=== PATIENT | male | born 1960 | race Caucasian/White ===

== ENCOUNTER 2020-05-03 05:47 | Inpatient (IN) | payer OTHER ==
[~2020-05-03] VITALS: Ht 175.3 cm; Wt 92.0 kg
[2020-05-03] MEDS ORDERED: ONDANSETRON PF 4 MG/2 ML VIAL. ONE (06:06)
[2020-05-03] MEDS ORDERED: ONDANSETRON PF 4 MG/2 ML VIAL. IVP ONE (06:15)
[2020-05-03] MEDS ORDERED: IV NORMAL SALINE 1,000ML 1,000 ML IV ONE ×3 (06:15→08:00)
[2020-05-03 06:20] LABS: BASO % 0 % (0-3); EOS % 0 % (0-3); HEMATOCRIT 51.2 % (39.0-53.0); HEMOGLOBIN 17.4 g/dL (13.0-17.5); LYMPH # 0.7 x10^3/uL (1.0-4.8); LYMPH % 5 % (24-48); MEAN CORPUSCULAR HEMOGLOBIN 33 pg (25-35); MEAN CORPUSCULAR HGB CONC 34 g/dL (31-37); MEAN CORPUSCULAR VOLUME 97 fL (79-100); MONO # 0.7 x10^3/uL (0.0-1.1); MONO % 4 % (0-9); NEUT # 14.5 x10^3uL (1.8-7.7); NEUT % 91 % (31-73); PLATELET COUNT 293 x10^3/uL (140-400); RED BLOOD COUNT 5.28 x10^6/uL (4.30-5.70); RED CELL DISTRIBUTION WIDTH 12.3 % (11.5-14.5)
[2020-05-03 06:26] LABS: CALCIUM 9.3 mg/dL (8.5-10.1); CREATININE 3.1 mg/dL (0.7-1.3); GFR 20.7; POTASSIUM 4.3 mmol/L (3.5-5.1)
[2020-05-03] MEDS ORDERED: MORPHINE SULFATE 4 MG/ML DISP.SYRIN. IV ONE ×2 (06:30→07:30)
--- NOTE | 2020-05-03 06:32 | PHYS DOC ---
Past History Past Medical History: Hypertension Past Surgical History: Appendectomy, Other Additional Past Surgical Histo: hernia repair, cyst from face removed, Basal cell carcinoma removed back Alcohol Use: None General Adult EDM: Chief Complaint: NAUSEA/VOMITING/DIARRHEA HPI: HPI: 59-year-old male presents with epigastric abdominal pain and vomiting. Patient started with volume to p.o. last night. He has had multiple episodes overnight. He has also developed sharp epigastric pain. His generalized abdomen is sore from the vomiting, but he also feels like there is a focal area of sharp pain in the epigastric area. It is moderate to severe in intensity. Patient has had a hernia repair in the past in this general area. He still has his gallbladder. No history of pancreatitis. He does not drink alcohol daily. He denies diarrh ea. He denies fever or chills. He is on clindamycin currently for a dental infection. Review of Systems: Review of Systems: Constitutional: Denies fever or chills Eyes: Denies change in visual acuity HENT: Denies nasal congestion or sore throat Respiratory: Denies cough or shortness of breath Cardiovascular: Denies chest pain or edema GI: Epigastric abdominal pain, nausea, vomiting. denies bloody stools or diarrhea : Denies dysuria Musculoskeletal: Denies back pain or joint pain Integument: Denies rash Neurologic: Denies headache, focal weakness or sensory changes Endocrine: Denies polyuria or polydipsia Lymphatic: Denies swollen glands Psychiatric: Denies depression or anxiety Current Medications: Current Meds: Current Medications Medications (Trade) Dose Ordered Sig/Manisha Start Time Stop Time Status Last Admin Dose Admin Ondansetron HCl (Zofran) 4 mg 1X ONCE 05/03/20 06:15 05/03/20 06:17 DC 05/03/20 06:10 4 MG Sodium Chloride 1,000 ml @ 1,000 mls/hr 1X ONCE 05/03/20 06:15 05/03/20 07:14 05/03/20 06:10 1,000 MLS/HR Allergies: Allergies: Allergies Coded Allergies Type Severity Reaction Last Updated Verified Sulfa (Sulfonamide Antibiotics) Allergy Unknown 05/03/20 Yes Physical Exam: PE: Constitutional: Well developed, well nourished, no acute distress, non-toxic appearance. [] HENT: Normocephalic, atraumatic, bilateral external ears normal, oropharynx moist, no oral exudates, nose normal. [] Eyes: PERRLA, EOMI, conjunctiva normal, no discharge. [] Neck: Normal range of motion, no tenderness, supple, no stridor. [] Cardiovascular:Heart rate regular rhythm, no murmur [] Lungs & Thorax: Bilateral breath sounds clear to auscultation [] Abdomen: Bowel sounds normal, soft, epigastric tenderness with involuntary guarding, no masses, no pulsatile masses. [] Skin: Warm, dry, no erythema, no rash. [] Back: No tenderness, no CVA tenderness. [] Extremities: No tenderness, no cyanosis, no clubbing, ROM intact, no edema. [] Neurologic: Alert and oriented X 3, normal motor function, normal sensory function, no focal deficits noted. [] Psychologic: Affect normal, judgement normal, mood normal. [] Current Patient Data: Labs: Laboratory Tests Test 05/03/20 05:55 White Blood Count 16.0 x10^3/uL (4.0-11.0) H Red Blood Count 5.28 x10^6/uL (4.30-5.70) Hemoglobin 17.4 g/dL (13.0-17.5) Hematocrit 51.2 % (39.0-53.0) Mean Corpuscular Volume 97 fL (79-100) Mean Corpuscular Hemoglobin 33 pg (25-35) Mean Corpuscular Hemoglobin Concent 34 g/dL (31-37) Red Cell Distribution Width 12.3 % (11.5-14.5) Platelet Count 293 x10^3/uL (140-400) Neutrophils (%) (Auto) 91 % (31-73) H Lymphocytes (%) (Auto) 5 % (24-48) L Monocytes (%) (Auto) 4 % (0-9) Eosinophils (%) (Auto) 0 % (0-3) Basophils (%) (Auto) 0 % (0-3) Neutrophils # (Auto) 14.5 x10^3uL (1.8-7.7) H Lymphocytes # (Auto) 0.7 x10^3/uL (1.0-4.8) L Monocytes # (Auto) 0.7 x10^3/uL (0.0-1.1) Eosinophils # (Auto) 0.0 x10^3/uL (0.0-0.7) Basophils # (Auto) 0.0 x10^3/uL (0.0-0.2) Platelet Estimate Pending Sodium Level 136 mmol/L (136-145) Potassium Level 4.3 mmol/L (3.5-5.1) Chloride Level 95 mmol/L (98-107) L Carbon Dioxide Level 21 mmol/L (21-32) Anion Gap 20 (6-14) H Blood Urea Nitrogen 46 mg/dL (8-26) H Creatinine 3.1 mg/dL (0.7-1.3) H Estimated GFR (Cockcroft-Gault) 20.7 BUN/Creatinine Ratio 15 (6-20) Glucose Level 171 mg/dL (70-99) H Calcium Level 9.3 mg/dL (8.5-10.1) Total Bilirubin Pending Aspartate Amino Transferase (AST) Pending Alanine Aminotransferase (ALT) Pending Alkaline Phosphatase Pending Total Protein Pending Albumin Pending Albumin/Globulin Ratio Pending Lipase Pending Vital Signs: Vital Signs Date Time Temp Pulse Resp B/P (MAP) Pulse Ox O2 Delivery O2 Flow Rate FiO2 05/03/20 05:50 97.5 78 18 191/105 (133) 97 Room Air EKG: EKG: [] Radiology/Procedures: Radiology/Procedures: [] Impressions: CT ABDOMEN PELVIS WO CONTRAST History: epigastric pain Comparison: None. Technique: After administration of intravenous contrast, helical CT of the abdomen and pelvis was performed from the lung bases through the ischial tuberosities. Coronal and sagittal reconstructions were obtained. 75 mL of Omnipaque 350 were used. One or more of the following dose reduction techniques were utilized: Automated exposure control (AEC), Adjustment of mA and/or kV according to patient size, Use of iterative reconstruction technique such as ASiR, CT scan done according to ALARA and image gently/image wisely Abdomen Findings: The visualized lung bases are clear. Coronary artery atherosclerotic disease. Extensive peripancreatic haziness and scattered free fluid Cholelithiasis. The liver, spleen, and bilateral adrenal glands are normal. Symmetric renal enhancement. There is no focal renal mass. There is no hydronephrosis. Wall thickening of the third portion of duodenum. Colonic diverticulosis. There is no evidence of bowel obstruction. Appendectomy. There is no mesenteric or retroperitoneal adenopathy. The abdominal aorta is normal in caliber. Mild aortoiliac atherosclerotic disease. Pelvis Findings: Urinary bladder is normal. Mild pelvic free fluid. There is no pelvic or inguinal adenopathy. Iterative changes of the spine. IMPRESSION: 1. Extensive peripancreatic haziness and scattered free fluid consistent with acute. Pancreatitis. No large organized fluid collection. 2. Adjacent duodenal wall thickening, likely reactive. 3. Cholelithiasis. 4. Colonic diverticulosis. Electronically signed by: Evon Tristan MD (05/03/2020 7:24 AM) [id number] DICTATED AND SIGNED BY: EVON TRISTAN MD DATE: 05/03/20723 CC: JACOBO BAIG DO; PCP,UNKNOWN ~ Heart Score: Risk Factors: Risk Factors: DM, Current or recent (<one month) smoker, HTN, HLP, family history of CAD, obesity. Risk Scores: Score 0 - 3: 2.5% MACE over next 6 weeks - Discharge Home Score 4 - 6: 20.3% MACE over next 6 weeks - Admit for Clinical Observation Score 7 - 10: 72.7% MACE over next 6 weeks - Early Invasive Strategies Course & Med Decision Making: Course & Med Decision Making Pertinent Labs and Imaging studies reviewed. (See chart for details) The patient is having quite a bit of discomfort. I have given him 4 mg of morphine twice so far to help get a hold of his pain. His labs are significant for a lipase of 3178. His creatinine is elevated 3.1. Have ordered a second liter fluid. His CT scan is also consistent with acute pancreatitis. He has gallstones, but his bilirubin is normal. Does not appear to be obstructed at this time. I spoke with the patient about admission and he understands and is in agreement with admission. He is n.p.o. and I will place him on NS maintenance fluid for now. I spoke with Dr. Brody and he has accepted the patient for admission. [] Cailin Disclaimer: Cailin Disclaimer: This electronic medical record was generated, in whole or in part, using a voice recognition dictation system. Departure Departure: Impression: Primary Impression: Acute pancreatitis Qualified Codes: K85.90 - Acute pancreatitis without necrosis or infection, unspecified Disposition: ADMITTED INPT THIS HOSP Admitting Physician: Ho, Donnie Condition: STABLE Referrals: PCP,UNKNOWN (PCP) JACOBO BAIG DO May 03, 2020 06:32
[2020-05-03 06:33] LABS: ALBUMIN 4.3 g/dL (3.4-5.0); ALBUMIN/GLOBULIN RATIO 1.1 (1.0-1.7); TOTAL BILIRUBIN 0.5 mg/dL (0.2-1.0); TOTAL PROTEIN 8.2 g/dL (6.4-8.2)
[2020-05-03 07:24] LABS: % LYMPHS 7 % (24-48); % MONOS 5 % (0-10); % SEGS 88 % (35-66); PLT ESTIMATE ADEQUATE (ADEQUATE)
--- NOTE | 2020-05-03 07:27 | RAD ---
CT ABDOMEN PELVIS WO CONTRAST History: epigastric pain Comparison: None. Technique: After administration of intravenous contrast, helical CT of the abdomen and pelvis was performed from the lung bases through the ischial tuberosities. Coronal and sagittal reconstructions were obtained. 75 mL of Omnipaque 350 were used. One or more of the following dose reduction techniques were utilized: Automated exposure control (AEC), Adjustment of mA and/or kV according to patient size, Use of iterative reconstruction technique such as ASiR, CT scan done according to ALARA and image gently/image wisely Abdomen Findings: The visualized lung bases are clear. Coronary artery atherosclerotic disease. Extensive peripancreatic haziness and scattered free fluid Cholelithiasis. The liver, spleen, and bilateral adrenal glands are normal. Symmetric renal enhancement. There is no focal renal mass. There is no hydronephrosis. Wall thickening of the third portion of duodenum. Colonic diverticulosis. There is no evidence of bowel obstruction. Appendectomy. There is no mesenteric or retroperitoneal adenopathy. The abdominal aorta is normal in caliber. Mild aortoiliac atherosclerotic disease. Pelvis Findings: Urinary bladder is normal. Mild pelvic free fluid. There is no pelvic or inguinal adenopathy. Iterative changes of the spine. IMPRESSION: 1. Extensive peripancreatic haziness and scattered free fluid consistent with acute. Pancreatitis. No large organized fluid collection. 2. Adjacent duodenal wall thickening, likely reactive. 3. Cholelithiasis. 4. Colonic diverticulosis. Electronically signed by: Charlie Joseph MD (05/03/2020 7:24 AM) [id number]
[2020-05-03] MEDS ORDERED: LISI1TAB20 PO (07:55)
[2020-05-03] MEDS ORDERED: MORPHINE SULFATE 4 MG/ML DISP.SYRIN. IVP PRN (08:00)
[2020-05-03] MEDS ORDERED: ONDANSETRON PF 4 MG/2 ML VIAL. IVP PRN (08:00)
[2020-05-03 08:28] VITALS: BP 198/99
[2020-05-03] MEDS: IV NORMAL SALINE 1,000ML 1,000 ML IV SCH ×2 (09:15→17:07)
[2020-05-03] MEDS: HYDROmorphone PF 1 MG/ML DISP.SYRIN IVP PRN ×5 (09:27→22:58)
[2020-05-03 10:02] VITALS: BP 179/110
--- NOTE | 2020-05-03 10:08 | HP ---
ADMIT DATE: 05/03/2020 ATTENDING PHYSICIAN: Dr. Govea. CHIEF COMPLAINT: Nausea, vomiting, abdominal pain. 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 He had a 1-day history of epigastric abdominal pain with significant vomiting and nausea, multiple episodes with epigastric pain. In the ED, he was found to have acute pancreatitis. The CT showed significant peripancreatic inflammation. He has some gallstones in the gallbladder, but no bile duct obstruction. He drinks alcohol occasionally, not to excess. He is on clindamycin currently for dental infection. PAST MEDICAL HISTORY: Significant for essential hypertension. He has had a previous appendectomy, hernia repair, basal cell carcinoma removed from the back. ALLERGIES: HE HAS ALLERGIES TO SULFA DRUGS. CURRENT MEDICATIONS: Clindamycin orally and lisinopril/hydrochlorothiazide for hypertension. SOCIAL HISTORY: He is a nonsmoker. He drinks socially, not to excess. FAMILY HISTORY: Mom at age 78 of complications of COPD. Father at age of complication of colon cancer. He states that he has had a colonoscopy 10 years ago that was ___. 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 His children are grown. REVIEW OF SYSTEMS: Significant for the localized abdominal pain, some nausea, vomiting, 1 episode of diarrhea. No COVID exposure. No fevers, chills, or hematemesis. All other systems reviewed and determined to be negative. PHYSICAL EXAMINATION: GENERAL: When I saw him, this is a pleasant, middle-aged gentleman. INITIAL VITAL SIGNS: Showed blood pressure 198/99, pulse 85 and regular, temperature 98.1 degrees Fahrenheit. HEENT: Head is without trauma. Pupils are reactive. Sclerae nonicteric. Oropharynx clear. NECK: Supple, no bruits. LUNGS: Otherwise clear. CARDIOVASCULAR: Shows hyperdynamic precordium. No gallops. Peripheral pulses are palpable and strong. ABDOMEN: Obese, minimal guarding. There was some tympany with increased gas. There is no guarding or rebound tenderness. No masses palpated. EXTREMITIES: Showed no cyanosis or edema. NEUROLOGIC: Focally intact. Speech is fluent. SKIN: Warm and dry. PERTINENT LABORATORY STUDIES: Hemoglobin is 17.4 g/dL, white count 16,000. Electrolytes are within normal range. Lipase was 3178. Nonfasting blood sugar 170. ASSESSMENT: 1. A 59-year-old gentleman with acute pancreatitis, etiology either retained stone that has passed or alcohol related. 2. Essential hypertension, labile. 3. Associated nausea and vomiting. PLAN: 1. Admit to the inpatient unit. 2. N.p.o. except for ice chips. 3. Pain and nausea control. 4. We will monitor his blood pressure. If it comes down, we will hold off treating. If it is still high, I would recommend transdermal clonidine for now. PALOMA GOVEA MD DR: AVERY/alina JOB#: [id number] / [id number]
[2020-05-03] MEDS ORDERED: cloNIDine TTS-3 1 PATCH PATCH TD SCH (10:15)
[2020-05-03] MEDS ORDERED: TRAM50TA PO (11:16)
[2020-05-03] MEDS ORDERED: CLIN150C14 PO (11:16)
[2020-05-03 15:06] VITALS: BP 186/99
[2020-05-03 19:00] VITALS: BP 178/104
[2020-05-03 22:51] VITALS: BP 163/99
[2020-05-04 02:33] LABS: BACTERIA,URINE 0 /HPF (0-FEW); BILIRUBIN,URINE NEG (NEG); CLARITY,URINE CLEAR; COLOR,URINE YELLOW; GLUCOSE,URINE NEG (NEG); NITRITE,URINE NEG (NEG); RBC,URINE 0 /HPF (0-2); SQUAMOUS EPITHELIAL CELL,UR OCC /LPF; UROBILINOGEN,URINE 0.2 mg/dL (0.2 mg/dL); WBC,URINE OCC /HPF (0-4)
[2020-05-04] MEDS: HYDROmorphone PF 1 MG/ML DISP.SYRIN IVP PRN ×5 (04:15→21:43)
[2020-05-04 05:38] VITALS: BP 169/91
[2020-05-04] MEDS ORDERED: FLU VACC QS 2020-21(6MOS+)/PF 0.5 ML SYRINGE. VAX IM ONE (09:00)
[2020-05-04] MEDS: LISINOPRIL 20 MG TABLET PO SCH (09:30)
--- NOTE | 2020-05-04 10:03 | PN ---
DATE: 05/04/2020 ATTENDING PHYSICIAN: Dr. Govea. SUBJECTIVE: Feeling better. Pain is better controlled, not nearly as nauseated. OBJECTIVE FINDINGS: VITAL SIGNS: Blood pressure today is 169/91, pulse 71 and regular. He is afebrile. Oxygen saturation 95% on room air. HEENT: Head is atraumatic. Pupils are reactive. No scleral icterus. NECK: Supple, no bruits. LUNGS: Otherwise clear. CARDIOVASCULAR: Showed regular heart tones. No gallops. ABDOMEN: Soft. Minimal guarding. Some tympany. There are no masses, no rebound tenderness. EXTREMITIES: Without edema. NEUROLOGIC FINDINGS: Focally intact. SKIN: Warm and dry. ASSESSMENT: 1. A 59-year-old gentleman with acute pancreatitis, most likely etiology is due to the hydrochlorothiazide component of his blood pressure meds. He does not have any bile duct issues nor does he drink enough to cause these symptoms. 2. Labile hypertension. 3. Associated nausea and vomiting, improved. PLAN: 1. Advance diet to clear liquids. He is hungry. 2. Pain and nausea control. 3. We should restart his blood pressure medication, but only the lisinopril portion, we will hold off the hydrochlorothiazide part. 4. If symptoms improve, he can be discharged as early as tomorrow. PALOMA GOVEA MD DR: AVERY/alina JOB#: [id number] / [id number]
[2020-05-04 10:30] VITALS: BP 152/83
[2020-05-04] MEDS: IV NORMAL SALINE 1,000ML 1,000 ML IV SCH (11:50)
[2020-05-04 14:29] VITALS: BP 143/85
[2020-05-04 19:23] VITALS: BP 119/78
[2020-05-04 23:27] VITALS: BP 130/83
[2020-05-05] MEDS: HYDROmorphone PF 1 MG/ML DISP.SYRIN IVP PRN ×5 (02:32→22:04)
[2020-05-05] MEDS: IV NORMAL SALINE 1,000ML 1,000 ML IV SCH (03:26)
[2020-05-05 05:43] VITALS: BP 117/85
[2020-05-05] MEDS: LISINOPRIL 20 MG TABLET PO SCH (08:58)
[2020-05-05 10:32] VITALS: BP 148/84
[2020-05-05 13:44] LABS: HEMATOCRIT 37.9 % (39.0-53.0); RED BLOOD COUNT 3.9 x10^6/uL (4.30-5.70); RED CELL DISTRIBUTION WIDTH 11.9 % (11.5-14.5); WHITE BLOOD COUNT 8.8 x10^3/uL (4.0-11.0)
[2020-05-05] MEDS ORDERED: oxyCODONE IR 5 MG TABLET PO PRN (13:45)
[2020-05-05 13:55] LABS: CALCIUM 8.5 mg/dL (8.5-10.1); GFR 76.2
[2020-05-05 14:01] LABS: ALBUMIN 2.9 g/dL (3.4-5.0); ALBUMIN/GLOBULIN RATIO 0.7 (1.0-1.7); TOTAL BILIRUBIN 0.7 mg/dL (0.2-1.0)
[2020-05-05] MEDS ORDERED: POTASSIUM CHLORIDE 20 MEQ TABLET.ER. PO ONE (14:15)
[2020-05-05] MEDS: POTASSIUM CL 40MEQ IN 0.9%NACL 1,000 ML IV SCH (14:45)
[2020-05-05 15:25] VITALS: BP 136/78
[2020-05-05 19:58] VITALS: BP 127/86
[2020-05-05 23:17] VITALS: BP 135/77
[2020-05-06] MEDS: POTASSIUM CL 40MEQ IN 0.9%NACL 1,000 ML IV SCH ×2 (01:45→08:23)
[2020-05-06] MEDS: HYDROmorphone PF 1 MG/ML DISP.SYRIN IVP PRN ×4 (01:45→11:39)
[2020-05-06 05:24] VITALS: BP 139/85
--- NOTE | 2020-05-06 06:41 | PN ---
DATE: 05/05/2020 SUBJECTIVE: The patient is resting, slightly propped up in bed, in no apparent distress. He continues to complain of abdominal pain, has no nausea, no vomiting. OBJECTIVE: GENERAL: When I examined him this afternoon, he looked well and was clearly in no apparent respiratory distress. No pallor, jaundice, cyanosis or thyromegaly. No jugular venous distention or limb edema. VITAL SIGNS: His heart rate was 65, blood pressure was 148/84, temperature was 98.7, respiratory rate was 18 and oxygen saturation was 97% on room air. HEAD, EYES, EARS, NOSE AND THROAT: Showed normocephalic, atraumatic. NECK: Supple. HEART: Showed normal first and second heart sounds. No gallop, rub or murmur. CHEST: Clear to auscultation. No crepitation or rhonchi. ABDOMEN: Distended, soft. Tenderness mostly in epigastric area. NEUROLOGIC: He was grossly intact. LABORATORY DATA: This afternoon showed a serum sodium 135, potassium 3, chloride 97, bicarbonate 31, anion gap of 7, BUN 18, creatinine 1, estimated GFR was 76 mL per minute. His glucose was 90, calcium was 8.5. Total bilirubin, AST, ALT, alkaline phosphatase were normal. Total protein 7, albumin was 2.9. His serum amylase is down to 514. His white cell count is down to 18,800, hemoglobin 13, hematocrit 38, MCV 97, and platelet count 241,000. His CT scan of the abdomen and pelvis showed that the patient has cholelithiasis. Unfortunately, there were no more details about his gallbladder. He has extensive peripancreatic haziness and scattered free fluid consistent with acute pancreatitis. No large organized fluid collection, adjacent duodenal wall thickening, likely reactive. He has cholelithiasis, colonic diverticulosis. PLAN: My plan is to correct his potassium. I will change his IV fluid to normal saline with 40 mEq of potassium chloride and was given 40 mEq of potassium p.o. I will keep him n.p.o. from midnight tonight and do abdominal ultrasound for acute cholecystitis or cholelithiasis and hopefully if his symptom improves, he can be discharged home. ALANA GUILLEN MD DR: MODE/alina JOB#: [id number] / [id number]
[2020-05-06 06:42] LABS: ALBUMIN 2.4 g/dL (3.4-5.0); ALBUMIN/GLOBULIN RATIO 0.6 (1.0-1.7); CALCIUM 7.9 mg/dL (8.5-10.1); CREATININE 0.8 mg/dL (0.7-1.3); GFR 98.6; POTASSIUM 3.8 mmol/L (3.5-5.1); TOTAL BILIRUBIN 0.6 mg/dL (0.2-1.0); TOTAL PROTEIN 6.2 g/dL (6.4-8.2)
[2020-05-06] MEDS: LISINOPRIL 20 MG TABLET PO SCH (08:23)
--- NOTE | 2020-05-06 08:33 | RAD ---
EXAM: Abdomen sonogram. HISTORY: Pain. TECHNIQUE: Sonographic imaging of the abdomen was performed. COMPARISON: CT dated 05/03/2020. FINDINGS: The liver is normal in size. No focal hepatic lesion is seen. The gallbladder wall is mildly thickened, measuring 4 mm. There is cholelithiasis. This includes a stone within the gallbladder neck measuring 1.0 cm. There is a negative sonographic Teague's sign. The common bile duct an pancreas are obscured. The right kidney and inferior vena cava are unremarkable. IMPRESSION: 1. Cholelithiasis, including a gallstone within the gallbladder neck. 2. Mild gallbladder wall thickening. Despite the absence of a sonographic Teague's sign, cholecystitis is not excluded. The possibility of gallbladder wall thickening due to intrinsic liver disease is also considered. 3. Obscured common bile duct and pancreas due to bowel gas. Electronically signed by: Joana Holden MD (05/06/2020 8:30 AM) [id number]
[2020-05-06 10:34] VITALS: BP 136/85
--- NOTE | 2020-05-06 13:13 | DS ---
DATE OF DISCHARGE: 05/06/2020 DISCHARGE TRANSFER SUMMARY HOSPITAL COURSE: The patient is a 59-year-old male patient who was admitted with severe abdominal pain, recurrent bouts of nausea, vomiting and dehydration. He was diagnosed with acute pancreatitis as well as acute kidney injury and hypokalemia. Initially, his serum lipase was 3178. It did down to 514. However, this morning, his serum lipase has dramatically risen up to 2716 and he is having severe pain and we did abdominal ultrasound, which showed the patient has cholelithiasis including a gallstone within the gallbladder neck. He has mild gallbladder wall thickening despite the absence of a sonographic Teague sign, cholecystitis not excluded, the possibility of gallbladder wall thickening due to intrinsic liver disease, also considered obscured common bile duct in pancreas due to bowel gas and given worsening of his symptoms and rebound of his serum lipase, a decision was made to transfer him to [facility] to consult the surgical team as well as [place] and might require MRCP and/or hepatobiliary scan and surgical treatment and/or ERCP. When I saw him this afternoon, he was sitting slightly propped up in bed, no apparent distress. Did complain of severe pain for which he is now getting hydromorphone every 3 hours. PHYSICAL EXAMINATION: GENERAL: When I examined him, he was pale, but no jaundice, cyanosis or thyromegaly. No jugular venous distention. No limb edema. VITAL SIGNS: His heart rate was 70, blood pressure was 136/85, temperature was 99, respiratory rate was 18 and oxygen saturation was 97%. HEAD, EYES, EARS, NOSE AND THROAT: Showed normocephalic, atraumatic. NECK: Supple. HEART: Showed normal first and second sounds. No gallop or murmur. CHEST: Clear to auscultation. No crepitation or rhonchi. ABDOMEN: Distended, soft with tenderness mostly in the epigastric and left upper quadrant. There is no guarding or rigidity. No organomegaly. All hernial orifice intact. Bowel sounds normal. NEUROLOGIC: He was awake, alert, responding appropriately. All cranial nerves intact. EXTREMITIES: He moves extremities without difficulty, ambulates without assistance or assistive devices. His intake was 2900, no output was recorded. LABORATORY WORK: This morning showed a serum sodium 136, potassium 3.8, chloride 102, bicarbonate 28, anion gap of 6, BUN 15, creatinine 0.8, estimated GFR was 98 mL per minute. His glucose was 87, calcium was 7.9. Total bilirubin, AST, ALT, alkaline phosphatase were normal. Total protein 6.2, albumin 2.4. Serum lipase has risen up to 2716. His white cell count is down to 8800, hemoglobin 13, hematocrit 38, MCV 97, and platelet count of 141,000. DISCHARGE MEDICATIONS: The patient was transferred to [facility] to continue with IV fluid in the form of D5 normal saline with 40 mEq of potassium chloride, hydromorphone 1 mg IV every 3 hours and clonidine patch TTS-3 topically once a week. FINAL DISCHARGE DIAGNOSES: 1. Gallstone pancreatitis. 2. Acute cholecystitis. 3. Hypokalemia. ALANA GUILLEN MD DR: MODE/alina JOB#: [id number] / [id number]
== END 2020-05-06 13:35 | disposition short-term general hospital (02) | DRG 438 ==
LOC: ER 05:47 → 1 SOUTH 07:43
PROVIDERS: ADMIT Hospitalist; ATTEND Hospitalist
DX: K85.10 Biliary acute pancreatitis without necrosis or infection (principal); N17.0 Acute kidney failure with tubular necrosis; K80.00 Calculus of gallbladder with acute cholecystitis without obstruction; E86.0 Dehydration; E87.6 Hypokalemia; I10 Essential (primary) hypertension; K04.7 Periapical abscess without sinus; Z80.0 Family history of malignant neoplasm of digestive organs; Z82.5 Family history of asthma and other chronic lower respiratory diseases; Z85.828 Personal history of other malignant neoplasm of skin; Z90.49 Acquired absence of other specified parts of digestive tract; Z88.2 Allergy status to sulfonamides; Z20.828 Contact with and (suspected) exposure to other viral communicable diseases
CPT/HCPCS: 36415; 74176; 76705; 80053; 81001; 83690; 85007; 85025; 85027; 87426; 90471; 90686; 96361; 96374; 96375; 96376; J1170; J2270; J2405; 99285-25; J7030